=== PATIENT | male | born 2000 | race Caucasian/White ===

== ENCOUNTER 2019-05-08 13:57 | Emergency (ER) | payer MEDICAID ==
[~2019-05-08] VITALS: Ht 172.7 cm; Wt 70.0 kg
[2019-05-08 14:03] VITALS: BP 114/74
== END 2019-05-08 14:21 | disposition home or self-care (01) ==
LOC: ER 13:57
DX: J06.9 Acute upper respiratory infection, unspecified (principal); B97.89 Other viral agents as the cause of diseases classified elsewhere; F41.9 Anxiety disorder, unspecified; F32.9 Major depressive disorder, single episode, unspecified; F12.90 Cannabis use, unspecified, uncomplicated
CPT/HCPCS: 99281

== ENCOUNTER 2020-02-18 05:58 | Emergency (ER) | payer MEDICAID ==
[~2020-02-18] VITALS: Ht 175.3 cm; Wt 61.4 kg
[2020-02-18] MEDS ORDERED: ondansetron 4mg rapidly disintigrating tab PO ONE (06:35)
[2020-02-18] MEDS ORDERED: LORazepam 1 MG tablet PO ONE (06:35)
[2020-02-18] MEDS ORDERED: acetaminophen 325mg tablet PO ONE (06:35)
[2020-02-18] MEDS ORDERED: ibuprofen tablet 400 MG TABLET PO ONE (06:35)
[2020-02-18 07:52] VITALS: BP 115/67
[2020-02-18 08:50] LABS: CLARITY,URINE CLEAR (Clear); COLOR,URINE YELLOW (Yellow); GLUCOSE, URINE NEGATIVE (Neg); KETONES,URINE 40 mg/dl (Neg); LEUKOCYTE ESTERASE ,URINE NEGATIVE (Neg); NITRITES, URINE NEGATIVE (Neg); OCCULT BLOOD,URINE NEGATIVE (Neg); PROTEIN,URINE NEGATIVE (Neg); UROBILINOGEN,URINE 0.2 E.U/dL (0.2-1.0)
[2020-02-18 08:51] LABS: UA COLLECTION TYPE CLN CATCH MIDSTREAM
[2020-02-18 09:05] LABS: URINE AMPHETAMINE SCREEN NEGATIVE (Neg); URINE BARBITUATE SCREEN NEGATIVE (Neg); URINE BENZODIAZEPINES SCREEN NEGATIVE (Neg); URINE CANNABINOID SCREEN POSITIVE (Neg); URINE COCAINE SCREEN NEGATIVE (Neg); URINE METHADONE SCREEN NEGATIVE (Neg); URINE OPIATE SCREEN NEGATIVE (Neg); URINE PHENCYCLIDINE SCREEN NEGATIVE (Neg)
[2020-02-18] MEDS ORDERED: IBUP-1984 PO (09:16)
[2020-02-18] MEDS ORDERED: ACET-812 PO (09:16)
== END 2020-02-18 09:28 | disposition home or self-care (01) ==
LOC: ER 05:58
DX: N50.812 Left testicular pain (principal); F12.90 Cannabis use, unspecified, uncomplicated; Z79.899 Other long term (current) drug therapy
CPT/HCPCS: 76870; 80305; 81003; 93976; 99284